=== PATIENT | female | born 1980 | race Caucasian/White ===

== ENCOUNTER 2021-12-12 05:40 | Observation (INO) ==
[2021-12-05 11:52] LABS: Basophils % 0.5 % (0.0-0.8); Eosinophils # 0.1 10*3/uL (0.0-0.87); Eosinophils % 1.6 % (0.00-10.9); Hematocrit 46.2 VOL% (35.7-47.0); Immature Granulocytes % 0.4 %; Immature Granulocytes Absolute 0.03 #; Lymphocytes # 2.4 10*3/uL (1.4-4.0); Lymphocytes % 30.2 % (21.3-54.2); Mean Corpuscular HGB Conc 32.5 GM/DL (32-36); Mean Corpuscular Volume 82.5 FL (87-102); Mean Platelet Volume 10.2 FL (9.6-12.0); Monocytes # 0.6 10*3/uL (0.11-0.8); Monocytes % 7.3 % (1.7-12.7); Platelet Count 306 T/CUMM (130-400)
[2021-12-05 12:08] LABS: Bilirubin,Total 1.2 MG/DL (0.20-1.00); Calcium 8.9 MG/DL (8.5-10.1); Osmolality,Calculated 281.3 MOS/KG (273-304); Potassium 4.5 MMOL/L (3.5-5.1); Risk Ratio 3.96; Total Protein 7.4 G/DL (6.4-8.2); VLDL Cholesterol 20.6 MG/DL
[2021-12-05 12:10] LABS: Bilirubin,Urine Negative (Negative); Blood, Urine Negative (Negative); Glucose,Urine (UA) Negative (Negative); Ketones,Urine Negative (Negative); Mucus,Urine Occasional /LPF (Occasional); Nitrite,Urine Negative (Negative); Protein,Urine Negative (Negative); Squamous Epithelial Cell,Urine Occasional /HPF (0-10); Urine Appearance Slightly Hazy (Clear); Urine Color Yellow (Yellow); Urine Specific Gravity 1.021 (1.001-1.035); Urine Urobilinogen < 2.0 eU/dL (<2.0)
[2021-12-05 12:37] LABS: HIV Antigen/Antibody Result Nonreactive (Nonreactive)
[2021-12-12] MEDS ORDERED: AMPICILLIN/SULBACTAM 3,000 MG in SODIUM CHLORIDE 0.9% 100 ML IV ONE (06:00)
[2021-12-12] MEDS ORDERED: ONDANSETRON 4 MG/2 ML VIAL ONE ×2 (06:25→10:00)
[2021-12-12] MEDS ORDERED: ROCURONIUM 50 MG/5 ML VIAL IV ONE (06:25)
[2021-12-12] MEDS ORDERED: fentaNYL 100 MCG/2 ML VIAL ONE ×2 (06:25→08:13)
[2021-12-12] MEDS ORDERED: LIDOCAINE 2% 5 ML VIAL ONE (06:25)
[2021-12-12] MEDS ORDERED: DEXAMETHASONE 4 MG/1 ML VIAL ONE (06:25)
[2021-12-12] MEDS ORDERED: propofoL 200 MG/20 ML VIAL IV ONE (06:25)
[2021-12-12] MEDS ORDERED: MIDAZOLAM 2 MG/2 ML VIAL ONE (06:26)
[2021-12-12] MEDS ORDERED: SCOPOLAMINE 1.5 MG PATCH TRANSDERM ONE (06:34)
[2021-12-12] MEDS ORDERED: FAMOTIDINE 20 MG TABLET PO ONE (06:34)
[2021-12-12] MEDS ORDERED: LACTATED RINGERS 1,000 ML IV SCH ×2 (07:00→10:00)
[2021-12-12] MEDS ORDERED: ACETAMINOPHEN INJ 1,000 MG/100 ML VIAL IV ONE (08:58)
[2021-12-12] MEDS ORDERED: SEVOFLURANE 1 UNIT/15 MINUTE INH ONE (08:58)
[2021-12-12] MEDS ORDERED: SUGAMMADEX 200 MG/2 ML VIAL IV ONE (09:23)
[2021-12-12] MEDS ORDERED: BISACODYL 10 MG SUPP RECTAL PRN (09:52)
[2021-12-12] MEDS ORDERED: IBUPROFEN 800 MG TABLET PO PRN (09:52)
[2021-12-12] MEDS ORDERED: BENZOCAINE/MENTHOL LOZENGE 18/BOX PO PRN (09:52)
[2021-12-12] MEDS ORDERED: MAGNESIUM HYDROXIDE SUSP 30 ML UDCUP PO PRN (09:52)
[2021-12-12] MEDS ORDERED: ACETAMINOPHEN 325 MG TABLET PO PRN (09:52)
[2021-12-12] MEDS ORDERED: ONDANSETRON 4 MG/2 ML VIAL IV PRN (09:59)
[2021-12-12] MEDS ORDERED: HYDROmorphone 1 MG/1 ML SYRINGE IV PRN (09:59)
[2021-12-12 10:00] LABS: Bilirubin,Urine Negative (Negative); Blood, Urine Small mg/dL (Negative); Glucose,Urine (UA) Negative (Negative); Ketones,Urine Negative (Negative); Mucus,Urine Occasional /LPF (Occasional); Nitrite,Urine Negative (Negative); Protein,Urine Negative (Negative); RBC,Urine <1 /HPF (0-4); Urine Appearance CLEAR (Clear); Urine Color Yellow (Yellow); Urine Specific Gravity 1.014 (1.001-1.035); Urine Urobilinogen < 2.0 eU/dL (<2.0)
[2021-12-12] MEDS ORDERED: HYDROmorphone 1 MG/1 ML SYRINGE ONE (10:00)
[2021-12-12] MEDS ORDERED: PROMETHAZINE 25 MG/1 ML VIAL ONE (10:13)
[2021-12-12] MEDS ORDERED: AMISULPRIDE 10 MG/4 ML VIAL IV ONE (10:13)
[2021-12-12] MEDS ORDERED: PROMETHAZINE INJ 12.5 MG in SODIUM CHLORIDE 0.9% 50 ML IV ONE (10:17)
[2021-12-12] MEDS: HYDROmorphone 1 MG/1 ML SYRINGE IV PRN (14:15)
[2021-12-12] MEDS: ONDANSETRON 4 MG/2 ML VIAL IV PRN ×2 (14:18→18:09)
[2021-12-12] MEDS ORDERED: KETOROLAC 30 MG/1 ML VIAL IV PRN (18:20)
[2021-12-12] MEDS: DOCUSATE SODIUM 100 MG CAPSULE PO PRN (20:39)
[2021-12-13] MEDS: HYDROmorphone 1 MG/1 ML SYRINGE IV PRN (01:33)
[2021-12-13 06:09] LABS: Basophils % 0.3 % (0.0-0.8); Eosinophils % 0.3 % (0.00-10.9); Hematocrit 39.7 VOL% (35.7-47.0); Hemoglobin 13.1 GM/DL (12.0-16.0); Immature Granulocytes % 0.3 %; Immature Granulocytes Absolute 0.03 #; Lymphocytes # 2.6 10*3/uL (1.4-4.0); Lymphocytes % 21.7 % (21.3-54.2); Mean Corpuscular Volume 82.9 FL (87-102); Mean Platelet Volume 9.5 FL (9.6-12.0); Monocytes % 8.8 % (1.7-12.7); Neutrophils % 68.6 % (38.7-73.9); Platelet Count 269 T/CUMM (130-400); Red Blood Count 4.79 MC/CUMM (3.8-5.5); Red Cell Distribution Width 15.9 % (9.3-17.3); White Blood Count 11.9 T/CUMM (4-12)
[2021-12-13] MEDS: SIMETHICONE CHEW 80 MG TABLET PO PRN ×2 (06:16→21:43)
[2021-12-13] MEDS ORDERED: POLYETHYLENE GLYCOL POWDER 17 GM PACK PO PRN (08:02)
[2021-12-13] MEDS: DOCUSATE SODIUM 100 MG CAPSULE PO PRN ×3 (10:26→21:45)
[2021-12-13] MEDS: oxyCODONE/ACETAMINOPHEN 5-325 MG TABLET PO PRN ×2 (12:25→21:45)
[2021-12-14 09:32] VITALS: BP 123/73
[2021-12-14] MEDS: DOCUSATE SODIUM 100 MG CAPSULE PO PRN (09:36)
[2021-12-14] MEDS: SIMETHICONE CHEW 80 MG TABLET PO PRN (09:36)
[2021-12-14] MEDS: oxyCODONE/ACETAMINOPHEN 5-325 MG TABLET PO PRN (09:40)
== END 2021-12-14 11:55 | disposition home or self-care (01) ==
LOC: N.OB 05:40 → N.OR 05:40 → N.SDSINP 05:41 → N.OB 10:42
PROVIDERS: ADMIT Obstetrics & Gynecology; ATTEND Obstetrics & Gynecology